=== PATIENT | female | born 1980 | race Caucasian/White ===

== ENCOUNTER 2019-07-13 06:58 | Emergency (ER) | payer BC, SELFPAY ==
[2019-07-13] VITALS (25 sets, daily range): BP systolic 111–140; BP diastolic 68–94; PULSE 44–85; RESP 12–26; TEMP 36.4; O2SAT 98–100
--- NOTE | ~2019-07-13 | XR_ITS ---
EXAMINATION: XR shoulder RT min 2V DATE: 07/13/2019 07:45 INDICATION: Right shoulder dislocation. TECHNIQUE: 2 views of right shoulder were obtained. COMPARISON: Right shoulder radiographs 12/26/2011 FINDINGS: There is anterior dislocation of humeral head with respect to glenoid. There is a chronic i mpaction fracture deformity of posterolateral aspect of humeral head (Hill-Sachs fracture deformity). The glenohumeral joint is not well profiled. The acromioclavicular joint is normal. IMPRESSION: 1. Anterior right shoulder dislocation. Reviewed, dictated and finalized at location A. 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
--- NOTE | ~2019-07-13 | XR_ITS ---
EXAMINATION: XR shoulder RT min 2V DATE: 07/13/2019 08:02 INDICATION: Right shoulder dislocation status post reduction. TECHNIQUE: 2 views of right shoulder were obtained. COMPARISON: Right shoulder radiographs at 7:36 AM FINDINGS: Bone alignment is normal. There is a chronic impaction fracture deformity of posterolateral aspect of humeral head (Hill-Sachs fracture deformity). The acromioclavicular joint is normal. The g lenohumeral joint is not well profiled. IMPRESSION: 1. Normal alignment at glenohumeral joint. Reviewed, dictated and finalized at location A. LE MAKER
--- NOTE | 2019-07-13 07:11 | ED.GENADULT ---
HPI - General Adult General Chief complaint: Extremity Injury, Upper Stated complaint: SHOULDER DISLOCATED? Time Seen by Provider: 07/13/19 07:11 Source: patient and family Mode of arrival: ambulatory Limitations: no limitations History of Present Illness HPI narrative: Patient is a 38-year-old female who presents for evaluation of right shoulder pain. Patient has a 5 time history of dislocation of the right shoulder, states that she was working out this morning, doing deltoid raises when she felt her right shoulder dislocate. In the past, this is been able to relocate at home, she has required procedural sedation in the past. Patient denies numbness in her right hand. She is right-hand dominant. She has not followed up with an orthopedic surgeon, last dislocation was approximately 3 years ago. Pain is dull, aching in nature in the right shoulder. Related Data Allergies Allergy/AdvReac Type Severity Reaction Status Date / Time No Known Allergies Allergy Unverified 07/13/19 07:08 Review of Systems Review of Systems: Narrative: CONSTITUTIONAL: Denies fever CARDIOVASCULAR: Denies chest pain, palpitations, or edema. RESPIRATORY: Denies cough or dyspnea. GASTROINTESTINAL: Denies abdominal pain, nausea, vomiting, or diarrhea. GENITOURINARY: Denies dysuria or hematuria. SKIN: Denies rash or itching. MUSCULOSKELETAL: Denies back pain, reports right shoulder pain. NEUROLOGIC: Denies headache, numbness, or weakness. [facility] Past Medical History Medical History (Updated 07/13/19 @ 08:18 by Lauren Momin MD) Shoulder dislocation, recurrent Social History Social History (Updated 07/13/19 @ 08:14 by Lauren Momin MD) Smoking status: Never smoker Alcohol intake: never Substance use: never Living arrangements: with family Gender identity (if verbalized by the patient): Female Exam Narrative: Exam Narrative: GENERAL: Mildly uncomfortable appearing, awake, alert HEAD: Normocephalic, atraumatic. EYES: PERRLA and EOMI. ENT: Nares clear, no rhinorrhea or epistaxis. Mucous membranes moist. NECK: Supple. CHEST: Clear to auscultation. No respiratory distress. HEART: Regular rate and rhythm. No murmur heard. Normal peripheral pulses. ABDOMEN: Soft, nontender, nondistended, normal active bowel sounds. EXTREMITIES: Squaring off of the right shoulder. Radial pulses 2+. Intact sensation median, ulnar, radial nerve distribution. No range of motion in that shoulder due to pain. Consistent with dislocation likely anterior. SKIN: Warm, dry, no rash. NEURO: No focal deficits. Alert and oriented x3 Course Vital Signs Vital signs: Vital Signs Temperature 36.4 C L 07/13/19 07:05 Pulse Rate 67 07/13/19 07:05 Respiratory Rate 16 07/13/19 07:05 Blood Pressure 135/79 07/13/19 07:05 Pulse Oximetry 100 07/13/19 07:05 Temperature 36.4 C L 07/13/19 07:05 Pulse Rate 52 L 07/13/19 08:41 Respiratory Rate 17 07/13/19 08:41 Blood Pressure 115/92 H 07/13/19 08:40 Pulse Oximetry 100 07/13/19 08:41 Procedures Orthopedic Joint Reduction Joint #1: Orthopedic Joint Reduction Date: 07/13/19 Orthopedic Joint Reduction Time: 07:50 Time Out Performed: Yes Side: right Joint Reduction Location: shoulder Analgesia: procedural sedation Pre-Procedure Neuro Vascular Exam: normal Local Anesthesia: lidocaine 1% Amount of anesthesic used (mL): 5 Shoulder Technique Used (if applicable): traction/counter-traction and scapula manipulation Technique used: traction/counter-traction Post-reduction neuro exam: intact Post-reduction vascular: intact Post Reduction X-Ray Obtained: Yes Post Reduction X-Ray Results: reduced Splint Applied: Yes Patient Tolerated Procedure: well Procedural Sedation Procedural Sedation #1: Procedural Sedation Date: 07/13/19 Procedural Sedation Time: 08:00 Provider Per
[2019-07-13] MEDS: ONDANSETRON INJ 4 MG/2 ML VIAL (07:47)
[2019-07-13] MEDS: HYDROMORPHONE HCL 1 MG/ML INJ (07:47)
[2019-07-13] MEDS: SODIUM CHLORIDE 0.9% IV 1,000 ML 999 ML IV CONT (07:47)
[2019-07-13] MEDS: MIDAZOLAM HCL 2 MG/2 ML VIAL (07:47)
== END 2019-07-13 09:12 | disposition home or self-care (01) ==
PROVIDERS: Emergency Provider Emergency Medicine; PCP Family Medicine Adolescent Medicine
DX: S43.014A Anterior dislocation of right humerus, initial encounter (principal)
CPT/HCPCS: 23650; 73030; 99285; J1170; J2250; J2405; J3010; J7030

== ENCOUNTER → 2019-12-22 12:23 | Outpatient (CLI) | payer BC, SELFPAY ==
--- NOTE | ~2019-12-22 | MR_ITS ---
EXAMINATION: MR shoulder RT w con DATE: 12/22/2019 14:18 INDICATION: Recurrent right shoulder dislocations TECHNIQUE: Magnetic resonance imaging (MRI) of the right shoulder was performed following intra-stephanie cular gadolinium contrast injection and without intravenous contrast. Details of the glenohumeral amy nt injection have been dictated separately. Sequences included axial T2-weighted FS FSE, axial T1-we ighted FS FSE, coronal oblique T1-weighted FS FSE, coronal oblique T2-weighted FSE, sagittal T2-weigh avi FS FSE, sagittal T1-weighted FSE, and ABER (abduction external rotation) T1-weighted FS FSE. COMPARISON: Right shoulder radiographs dated 07/13/2019 FINDINGS: Coracoacromial arch: The acromion undersurface is curved in morphology (type II). The coracoacromial ligament is normal. Acromioclavicular joint is normal. Rotator cuff: The supraspinatus, infraspinatus and teres minor are normal. The subscapularis is normal. Normal rota tor cuff muscle bulk and signal. Biceps tendon, glenoid labrum and glenohumeral cartilage: Long head of the biceps tendon is intact. Tear at the anterior and anteroinferior glenoid labrum begi nning at the 3:00 position at the inferior margin of a likely normal anterosuperior sublingual forame n and extending inferiorly to the 5:00 position. Nearly 5:00 the tear extends to a small region of st ripping the periosteum at the rim of the glenoid which is better appreciated on the ABER images consi stent with a Perthes lesion. Remainder of the labrum is normal. Glenohumeral articular cartilage is n ormal. Bones and other: Normal marrow signal with no edema, acute fracture or pathologic marrow replacing process. Is a subtl e ill sacs fracture trough along the posterolateral margin of the humeral head consistent with histor y of chronic shoulder dislocations. No abnormal fluid signal in the subacromial/subdeltoid bursa to s uggest bursitis. IMPRESSION: 1. Constellation of findings consistent with given history of recurrent shoulder dislocations includi ng tear/Perthes lesion of the anterior/anteroinferior glenoid labrum and chronic shallow Hill-Sachs f racture trough at the posterolateral humeral head. Reviewed, dictated and finalized at location A. IMPRESSION: 1. Constellation of findings consistent with given history of recurrent shoulde r dislocations including tear/Perthes lesion of the anterior/anteroinferior gle noid labrum and chronic shallow Hill-Sachs fracture trough at the posterolatera l humeral head.
--- NOTE | ~2019-12-22 | XR_ITS ---
EXAMINATION: XR fl inj shoulder RT - MR/CT DATE: 12/22/2019 13:10 INDICATION: Recurrent right shoulder dislocation. TECHNIQUE: A time-out was performed to verify the patient's name, date of , and procedure to b e performed. The procedure including the risks, benefits, and alternatives was discussed with the pat ient. Risks discussed included bleeding and infection. The patient understood the risks and agreed to proceed. The skin overlying the right glenohumeral joint was prepped and draped in usual sterile fas hion. Anesthetic was administered with 1% lidocaine subcutaneously. A 22 G needle was advanced unde r fluoroscopic guidance into the joint. Subsequently, injectate consisting of 12 mL of 1:200 Multiha nce, 1:4 1% lidocaine, and 1:4 Omnipaque 240 was instilled. The needle was removed and the entry sit e was cleaned and dressed. There were no immediate complications. Fluoroscopy exposure time was 0.0 minutes. The total number of images was 3. FINDINGS: Real-time fluoroscopy demonstrates the needle and contrast in the right glenohumeral joint. IMPRESSION: 1. Successful right glenohumeral joint injection of contrast for subsequent MR arthrography. Reviewed, dictated and finalized at location B.
== END ==
PROVIDERS: PCP Family Medicine Adolescent Medicine; Visit Provider Internal Medicine
DX: M24.411 Recurrent dislocation, right shoulder (principal)
CPT/HCPCS: 23350; 73222; 77002; A9577; Q9966

== ENCOUNTER → 2021-02-06 16:02 | Outpatient (CLI) | payer BC, SELFPAY ==
--- NOTE | ~2021-02-06 | MM_ITS ---
EXAMINATION: MM screening guille BI w deandre HISTORY: Screening TECHNIQUE: Craniocaudal and mediolateral oblique 3-D tomosynthesis images were obtained and synthetic 2-D images were generated. CAD analysis was submitted and interpreted. COMPARISON: No prior mammogram is available for comparison at this institution. BREAST PARENCHYMAL COMPOSITION: The breasts are extremely dense, which lowers the sensitivity of mamm ography. FINDINGS: There is subtle left breast asymmetry in the subareolar location of the left breast on CC v iew. There are no suspicious masses, calcifications or architectural distortion in the right breast t o suggest malignancy. IMPRESSION: 1. Left breast asymmetry. 2. Additional mammographic views and possible breast ultrasound are recommended. BI-RADS Category 0: Incomplete: Needs additional imaging evaluation. Reviewed, dictated and finalized at location A. IMPRESSION: 1. Left breast asymmetry. 2. Additional mammographic views and possible breast ultrasound are recommended . BI-RADS Category 0: Incomplete: Needs additional imaging evaluation.
== END ==
PROVIDERS: PCP Family Medicine Adolescent Medicine; Visit Provider Obstetrics & Gynecology
DX: Z12.31 Encounter for screening mammogram for malignant neoplasm of breast (principal); R92.8 Other abnormal and inconclusive findings on diagnostic imaging of breast
CPT/HCPCS: 77063; 77067

== ENCOUNTER → 2021-03-06 08:23 | Outpatient (CLI) | payer BC, SELFPAY ==
--- NOTE | ~2021-03-06 | MMUS_ITS ---
EXAMINATION: MM diagnostic guille LT w deandre, US breast LT complete HISTORY: Left breast subareolar asymmetry reported on 02/06/2021 screening mammogram TECHNIQUE: Additional 3-D tomosynthesis images of the left breast were performed and synthetic 2-D im ages were generated. CAD analysis was submitted and interpreted. High resolution complete left breast ultrasound including all 4 quadrants and subareolar area was performed. COMPARISON: 02/06/2021 bilateral digital screening mammogram FINDINGS: MAMMOGRAPHIC FINDINGS: No suspicious mass or architectural distortion, malignant calcification, skin thickening or retractio n or significant new or developing density is detected. ULTRASOUND: 3 small cysts measuring 4 mm or smaller are identified, at 4:00 2.5 cm from nipple, 6:00 2.5 cm from nipple and 10:00 subareolar area. No suspicious mass or shadowing is evident. IMPRESSION: 1. Benign findings; no mammographic evidence of malignancy 2. Routine annual mammographic screening is recommended. BI-RADS Category 2: Benign finding(s). Reviewed, dictated and finalized at location A. IMPRESSION: 1. Benign findings; no mammographic evidence of malignancy 2. Routine annual mammographic screening is recommended. BI-RADS Category 2: Benign finding(s).
== END ==
PROVIDERS: PCP Family Medicine Adolescent Medicine; Visit Provider Obstetrics & Gynecology
DX: R92.8 Other abnormal and inconclusive findings on diagnostic imaging of breast (principal)
CPT/HCPCS: 76641; 77061; 77065; G0279